=== PATIENT | female | born 1955 ===

== ENCOUNTER 2017-01-12 14:42 | Emergency (ER) | payer MEDICAID, OTHER ==
[2017-01-12 14:42] VITALS: BMI 29.0
[2017-01-12 14:49] VITALS: TEMP 97.9; O2SAT 98
[2017-01-12] MEDS ORDERED: Alum-Mag Hydrox-Simethicone Susp (30 mL) PO STA (15:07)
[2017-01-12] MEDS ORDERED: DiphenhydrAMINE 50 mg/ml Inj IVP STA (15:07)
--- NOTE | 2017-01-12 15:13 | ED PDOC ---
Arrival/HPI - General Chief Complaint: Headache Time Seen by Provider: 01/12/17 14:47 - History of Present Illness Narrative History of Present Illness (Text): 01/12/17 14:56 A 61 year old female, whose past medical history includes migraines and acid reflux, brought in by son and presents to the emergency department complaining of gradual onset headache for one week. Patient reports long history of migraines, but this headache feels different. it is improved w ibuprofen but no exac fx. Patient notes also experiencing epigastric abdominal pain for the last week which she describes as "acid reflux." denies of any fever, nausea, vomiting , or any other complaints. Has hx of acid reflux, patient has taken omeprazole, but stopped due to weight loss over the past few months- approx 8lb. PMD: Dr. Virgie Marie Past Medical History - Provider Review Nursing Documentation Reviewed: Yes - Infectious Disease Hx of Infectious Diseases: None - Tetanus Immunization Tetanus Immunization: Unknown - Cardiac Hx Cardiac Disorders: Yes Hx Hypertension: Yes - Pulmonary Hx Respiratory Disorders: No - Neurological Hx Neurological Disorder: No - HEENT Hx HEENT Disorder: No - Endocrine/Metabolic Hx Systemic Lupus Erythematosus: No - Hematological/Oncological Hx Cancer: No - Integumentary Hx Basal Cell Carcinoma: No - Musculoskeletal/Rheumatological Hx Osteoarthritis: No - Genitourinary/Gynecological Hx Bladder Cancer: No - Psychiatric Hx Depression: No Hx Emotional Abuse: No Hx Physical Abuse: No Hx Substance Use: No - Surgical History Hx Hysterectomy: Yes - Anesthesia Hx Anesthesia: Yes Hx Anesthesia Reactions: No - Suicidal Assessment Feels Threatened In Home Enviroment: No Family/Social History - Physician Review Nursing Documentation Reviewed: Yes Family/Social History: Other (nc) Smoking Status: Never Smoked Hx Alcohol Use: No Hx Substance Use: No Hx Substance Use Treatment: No Allergies/Home Meds Allergies/Adverse Reactions: Allergies No Known Allergies Allergy (Verified 01/12/17 14:43) Home Medications: Home Meds Medication Instructions Recorded Confirmed Losartan [Cozaar] 100 mg PO DAILY 01/03/14 01/12/17 Omeprazole [Omeprazole] 25 mg PO DAILY 01/12/17 01/12/17 Zolpidem [Ambien] 10 mg PO HS 01/12/17 01/12/17 Review of Systems - Review of Systems Constitutional: absent: Fevers Respiratory: absent: SOB, Cough Cardiovascular: absent: Chest Pain Gastrointestinal: Abdominal Pain (epigastric pain, reflux). absent: Nausea, Vomiting Musculoskeletal: Back Pain (lower back pain) Neurological: Headache Physical Exam Vital Signs Temp Pulse Resp BP Pulse Ox 01/12/17 17:23 56 L 18 152/66 H 98 01/12/17 14:42 97.9 F 72 16 163/80 H 98 Appearance: Positive for: Well-Appearing, Non-Toxic, Comfortable Pain Distress: None Mental Status: Positive for: Alert and Oriented X 3 - Systems Exam Head: Present: Atraumatic Pupils: Present: PERRL Mouth: Present: Moist Mucous Membranes Neck: Present: Normal Range of Motion Respiratory/Chest: Present: Clear to Auscultation. No: Respiratory Distress, Accessory Muscle Use Cardiovascular: Present: Regular Rate and Rhythm Abdomen: Present: Tenderness (epigastric tenderness). No: Distention, Peritoneal Signs, Rebound, Guarding Upper Extremity: Present: NORMAL PULSES Neurological: Present: GCS=15, CN II-XII Intact, Motor Func Grossly Intact, Normal Sensory Function, Normal Cerebellar Funct, Gait Normal, Other (no pronator drift) Skin: Present: Warm, Dry Psychiatric: Present: Alert, Oriented x 3 Medical Decision Making ED Course and Treatment: 01/12/17 15:25 EKG: Ordered, reviewed, and independently interpreted the EKG. Rate : 56 BPM Rhythm : Sinus bradycardia Interpretation : No ST-segment elevations or depressions, no T-wave inversions, normal intervals. Comparison : No previous EKG for comparison. 01/12/2017 16:09 PROCEDURE: CT HEAD WITHOUT CONTRAST. HISTORY: Headache COMPARISON: None available. TECHNIQUE: Axial computed tomography images were obtained through the head/brain without intravenous contrast. Radiation dose: Total exam DLP = 725.84 mGy-cm. This CT exam was performed using one or more of the following dose reduction techniques: Automated exposure control, adjustment of the mA and/or kV according to patient size, and/or use of iterative reconstruction technique. FINDINGS: HEMORRHAGE: No intracranial hemorrhage. BRAIN: Santillan-white matter differentiation is preserved. There is no mass, mass effect or abnormal extra-axial fluid collection. There are scattered coarse round calcifications in both cerebral hemispheres. There is no mass, mass effect or abnormal extra-axial fluid collection. VENTRICLES: The ventricles are normal in size, shape and configuration. CALVARIUM: The skull base and calvarium are normal. PARANASAL SINUSES: Predominantly clear. MASTOID AIR CELLS: Predominantly clear. OTHER FINDINGS: None. IMPRESSION: No acute intracranial abnormality. Scattered coarse calcifications in both cerebral hemispheres, sequela of remote infectious/inflammatory process. Dictator : ROSSANA WHARTON MD The pt reported complete resolution of her headache and epigastric pain after treatment. I disc w her and her son results, plan for rx, follow up and rtr. they v/u and agree w plan. - Lab Interpretations Lab Results: 01/12/17 15:35 01/12/17 15:35 Lab Results 01/12/17 16:35: Urine Color Yellow, Urine Appearance Clear, Urine pH 6.0, Ur Specific [place] 1.010, Urine Protein Negative, Urine Glucose (UA) Negative, Urine Ketones Negative, Urine Blood Negative, Urine Nitrate Negative, Urine Bilirubin Negative, Urine Urobilinogen 0.2, Ur Leukocyte Esterase Negative 01/12/17 15:35: Sodium 143, Potassium 3.7, Chloride 105, Carbon Dioxide 25, Anion Gap 17, BUN 28 H, Creatinine 1.0, Est GFR ( Amer) > 60, Est GFR ( Non-Af Amer) 56, Random Glucose 95, Calcium 9.8, Total Bilirubin 0.6, AST 49 H, ALT 63 H, Alkaline Phosphatase 117, Troponin I < 0.01, Total Protein 7.9, Albumin 4.3, Globulin 3.6, Albumin/Globulin Ratio 1.2, Lipase 124 01/12/17 15:35: WBC 7.4, RBC 4.61, Hgb 13.7, Hct 39.6, MCV 85.9, MCH 29.7, MCHC 34.6, RDW 13.3, Plt Count 284, MPV 10.0, Gran % 48.3 L, Lymph % (Auto) 44.1 H, [place] % (Auto) 5.7, Eos % (Auto) 1.5, Baso % (Auto) 0.4, Gran # 3.56, Lymph # 3.3 , [place] # 0.4, Eos # 0.1, Baso # 0.03 I have reviewed the lab results: Yes - RAD Interpretation Radiology Orders: 01/12/17 15:05 HEAD W/O CONTRAST [CT] Stat 01/12/17 16:20 GALLBLADDER & COMMON DUCT [US] Stat - Medication Orders Current Medication Orders: Discontinued Medications Al Hydrox/Mg Hydrox/Simethicone (Maalox Plus 30 Ml) 30 ml PO STAT STA Stop: 01/12/17 15:08 Last Admin: 01/12/17 15:00 Dose: 30 ml Diphenhydramine HCl (Benadryl) 25 mg IVP STAT STA Stop: 01/12/17 15:08 Last Admin: 01/12/17 15:00 Dose: 25 mg IVP Administration Document 01/12/17 15:00 OCS (Rec: 01/12/17 15:39 OCS [id number]) Charges for Administration # of IVP Administrations 1 Lidocaine HCl (Lidocaine 2% Viscous) 15 ml PO STAT STA Stop: 01/12/17 15:08 Last Admin: 01/12/17 15:00 Dose: 15 ml Metoclopramide HCl (Reglan) 10 mg IVP STAT STA Stop: 01/12/17 15:08 Last Admin: 01/12/17 15:00 Dose: 10 mg IVP Administration Document 01/12/17 15:00 OCS (Rec: 01/12/17 15:39 OCS [id number]) Charges for Administration # of IVP Administrations 1 - Scribe Statement The provider has reviewed the documentation as recorded by the Dio Thomas Provider Scribe Attestation: All medical record entries made by the Scribe were at my direction and personally dictated by me. I have reviewed the chart and agree that the record accurately reflects my personal performance of the history, physical exam, medical decision making, and the department course for this patient. I have also personally directed, reviewed, and agree with the discharge instructions and disposition. Disposition/Present on Arrival - Present on Arrival Any Indicators Present on Arrival: No History of DVT/PE: No History of Uncontrolled Diabetes: No Urinary Catheter: No History of Decub. Ulcer: No History Surgical Site Infection Following: None - Disposition Have Diagnosis and Disposition been Completed?: Yes Diagnosis: Headache, Epigastric pain Disposition: HOME/ ROUTINE Disposition Time: 22:20 Condition: IMPROVED Discharge Instructions (ExitCare): Diet for Ulcers and Gastritis (ED) Print Language: TRISTANIAN Additional Instructions: Please follow up with your doctor in the next week. Return to the ER for any worsening symptoms or for any other concerns. Prescriptions: Famotidine [Pepcid] 20 mg PO DAILY #14 tab Forms: [facility] (Polish)
[2017-01-12 15:42] LABS: BASO # 0.03 K/mm3 (0.0-2.0); BASO % 0.4 % (0.0-3.0); EOS # 0.1 (0.0-0.7); EOS % 1.5 % (1.5-5.0); GRAN # 3.56 (1.4-6.5); GRAN % 48.3 % (50.0-68.0); HEMATOCRIT 39.6 % (36.0-48.0); LYMPH # 3.3 (1.2-3.4); LYMPH % 44.1 % (22.0-35.0); MEAN CELL VOLUME 85.9 fl (80.0-105.0); MEAN CORPUSCULAR HEMOGLOBIN 29.7 pg (25.0-35.0); MEAN CORPUSCULAR HGB CONC 34.6 g/dl (31.0-37.0); MONO # 0.4 (0.1-0.6); MONO % 5.7 % (1.0-6.0); RED CELL DISTRIBUTION WIDTH 13.3 % (11.5-14.5); WHITE BLOOD COUNT 7.4 10^3/ul (4.5-11.0)
[2017-01-12 15:58] LABS: ALB/GLOB RATIO 1.2 (1.1-1.8); ALKALINE PHOSPHATASE 117 U/L (38-126); ALT/SGPT 63 U/L (7-56); AST/SGOT 49 U/L (14-36); BILIRUBIN,TOTAL 0.6 mg/dL (0.2-1.3); BLOOD UREA NITROGEN 28 mg/dL (7-21); CALCIUM 9.8 mg/dL (8.4-10.5); CARBON DIOXIDE 25 mmol/L (21-33); CHLORIDE 105 mmol/L (98-107); GFR AFRICAN-AMERICAN > 60; GLUCOSE,RANDOM 95 mg/dL (70-110); LIPASE 124 U/L (23-300); POTASSIUM 3.7 mmol/L (3.6-5.0); SODIUM 143 mmol/L (132-148); TOTAL PROTEIN 7.9 g/dL (5.8-8.3)
--- NOTE | 2017-01-12 16:11 | CT ---
PROCEDURE: CT HEAD WITHOUT CONTRAST. HISTORY: Headache COMPARISON: None available. TECHNIQUE: Axial computed tomography images were obtained through the head/brain without intravenous contrast. Radiation dose: Total exam DLP = 725.84 mGy-cm. This CT exam was performed using one or more of the following dose reduction techniques: Automated exposure control, adjustment of the mA and/or kV according to patient size, and/or use of iterative reconstruction technique. FINDINGS: HEMORRHAGE: No intracranial hemorrhage. BRAIN: Santillan-white matter differentiation is preserved. There is no mass, mass effect or abnormal extra-axial fluid collection. There are scattered coarse round calcifications in both cerebral hemispheres. There is no mass, mass effect or abnormal extra-axial fluid collection. VENTRICLES: The ventricles are normal in size, shape and configuration. CALVARIUM: The skull base and calvarium are normal. PARANASAL SINUSES: Predominantly clear. MASTOID AIR CELLS: Predominantly clear. OTHER FINDINGS: None. IMPRESSION: No acute intracranial abnormality. Scattered coarse calcifications in both cerebral hemispheres, sequela of remote infectious/inflammatory process.
[2017-01-12 16:39] LABS: TROPONIN I < 0.01 ng/mL
[2017-01-12 16:52] LABS: URINE BILIRUBIN NEGATIVE (NEGATIVE); URINE BLOOD NEGATIVE (NEGATIVE); URINE GLUCOSE (UA) NEGATIVE (NEGATIVE); URINE KETONE NEGATIVE (NEGATIVE); URINE LEUKOCYTE ESTERASE NEGATIVE Leu/uL (NEGATIVE); URINE PROTEIN NEGATIVE mg/dL (<30 mg/dL); URINE UROBILINOGEN 0.2 E.U./dL (<1 E.U./dL)
[2017-01-12 16:53] LABS: URINE APPEARANCE CLEAR (CLEAR); URINE COLOR YELLOW (YELLOW)
[2017-01-12 17:24] VITALS: BP 152/66; PULSE 56; RESP 18
--- NOTE | 2017-01-12 19:16 | US ---
EXAM: US Abdomen Limited, Right Upper Quadrant EXAM DATE/TIME: 01/12/2017 4:20 PM CLINICAL HISTORY: 61 years old, female; Pain; Abdominal pain; Epigastric; Additional info: Epigastric pain elevated lft TECHNIQUE: Real-time ultrasound of the right upper quadrant with image documentation. COMPARISON: There are no prior studies for comparison. FINDINGS: Liver: There is a 1 x 1.3 x 1.2 cm hepatic cyst. Liver is otherwise unremarkable.There is hepatopedal flow in the main portal vein. Gallbladder: Gallbladder is distended with no stones, sludge or wall thickening. There is comet tail artifact in the gallbladder fundus. Common bile duct: Common bile duct measures 6 mm in diameter. Pancreas: Pancreas is partially obscured by bowel gas. Visualized portion is echogenic. Right kidney: Right kidney is unremarkable. Aorta: Visualized portions of the aorta and inferior vena cava are unremarkable. IMPRESSION: Cholesterolosis of the gallbladder wall; mildly prominent common duct, 6 mm in diameter; hepatic cyst
--- NOTE | 2017-01-13 14:27 | CARD ---
APPROVED REPORT EKG Measurement Heart [id number] <Conclusion> Sinus bradycardia Otherwise normal ECG
== END 2017-01-12 20:20 | disposition home or self-care (01) ==
LOC: ED 14:42
DX: R51 Headache (principal); R10.13 Epigastric pain; I10 Essential (primary) hypertension
CPT/HCPCS: 70450; 76705; 80053; 81003; 83690; 84484; 85025; 93005; 96374; 96375; 99285; J1200; J2765